=== PATIENT | female | born 1970 | race Two or more races ===

== ENCOUNTER 2021-10-08 10:38 | Emergency (ER) | payer OTHER ==
[~2021-10-08] VITALS: Ht 157.5 cm; Wt 78.0 kg
[2021-10-08 10:50] VITALS: BP 114/65
[2021-10-08] MEDS ORDERED: HYDROCODONE/ACETAMINOPHEN 5/325MG TABLET PO ONE (11:15)
[2021-10-08] MEDS ORDERED: KETOROLAC 30MG/ML VIAL IM ONE (11:15)
[2021-10-08] MEDS ORDERED: HYDR-4001 MT (12:21)
== END 2021-10-08 12:34 | disposition home or self-care (01) ==
LOC: ER 10:38
DX: M54.50 Low back pain, unspecified (principal); Z88.0 Allergy status to penicillin
CPT/HCPCS: 72100; 81025; 99283